=== PATIENT | female | born 1990 | race Caucasian/White ===

== ENCOUNTER 2020-07-22 12:48 | Emergency (ER) | payer OTHER, SELFPAY ==
[2020-07-22 13:25] VITALS: BP 103/68; RESP 18; TEMP 37; BMI 24.0
== END 2020-07-22 15:06 | disposition left against medical advice (07) ==
PROVIDERS: Emergency Provider Emergency Medicine; PCP Nurse Practitioner Family
DX: R11.2 Nausea with vomiting, unspecified (principal); R07.9 Chest pain, unspecified; R10.9 Unspecified abdominal pain
CPT/HCPCS: 99281; 99282

== ENCOUNTER 2020-08-07 18:42 | Outpatient (REF) | payer OTHER, SELFPAY | END 2020-08-07 18:43 | disposition home or self-care (01) | LOC: HO.LNP 18:42 | PROVIDERS: Visit Provider Internal Medicine | DX: Z20.822 Contact with and (suspected) exposure to COVID-19 (principal); J06.9 Acute upper respiratory infection, unspecified | CPT/HCPCS: U0003 ==